=== PATIENT | male | born 1945 | race Hispanic/Latino ===

== ENCOUNTER 2018-08-05 07:58 | Inpatient (IN) | payer OTHER, MEDICARE ==
[2018-08-05] VITALS (15 sets, daily range): BP systolic 71–140; BP diastolic 46–72
[~2018-08-05] VITALS: Ht 172.7 cm; Wt 86.6 kg
[~2018-08-05 07:58] MED LIST: ACCUPRIL20 MG; ACCUPRIL5 MG PO; ALLOPURINOL100 MG PO; COLCRYS0.6 MG PO; EFFIENT10 MG PO; HYDROCHLOROTH12.5 MG PO; LANSOPRAZOLE15 MG; METOPROLOL TART50 MG PO; ONGLYZA5 MG PO; PLAVIX75 MG PO; PREVACID30 MG PO; QUINAPRIL HCL5 MG
[2018-08-05 09:01] LABS: BASOPHILS # (AUTO) 0.1 (0.0-0.1); BASOPHILS % 1.3 % (0.0-1.0); EOSINOPHILS # (AUTO) 0.2 (0.0-0.4); EOSINOPHILS % 2.1 % (0.0-6.0); HEMATOCRIT 49.8 % (38.2-49.6); HEMOGLOBIN 16.3 g/dL (14.0-18.0); LYMPHOCYTES # (AUTO) 2.2 (1.0-3.2); LYMPHOCYTES % 19.7 % (18.0-39.1); MEAN CORPUSCULAR HEMOGLOBIN 29.6 pg (28-32); MEAN CORPUSCULAR HGB CONC 32.7 g/dL (31-35); MEAN CORPUSCULAR VOLUME 90.5 fL (81-99); MONOCYTES # (AUTO) 0.8 (0.2-0.8); MONOCYTES % 7.6 % (4.4-11.3); NEUTROPHILS # (AUTO) 7.6 (2.1-6.9); NEUTROPHILS % 68.8 % (38.7-80.0); PLATELET COUNT 215 x10e3/uL (140-360); RED CELL DISTRIBUTION WIDTH 13.8 % (11.7-14.4)
[2018-08-05] MEDS ORDERED: ASPIR 8181 MG (09:04)
[2018-08-05] MEDS ORDERED: Entresto PO (09:04)
[2018-08-05] MEDS ORDERED: ATORVASTATIN CA40 MG PO (09:04)
[2018-08-05] MEDS ORDERED: HEPARIN SOD (PORCINE) 1000 UNIT/ML 30ML ONE (09:19)
[2018-08-05] MEDS ORDERED: HEPARIN SOD/SOD CHLORIDE 2,000 ML ONE (09:20)
[2018-08-05] MEDS ORDERED: SODIUM CHLORIDE 0.9% 1000ML 1,000 ML ONE ×2 (09:20→11:01)
[2018-08-05] MEDS ORDERED: NITROGLYCERIN/D5W 200 MCG/ML 250 ML ONE (09:20)
[2018-08-05] MEDS ORDERED: LIDOCAINE HCL 2% LOCAL 20 ML VIAL ONE ×2 (09:20→13:56)
[2018-08-05] MEDS ORDERED: IOPAMIDOL 370 MG/ML 200 ML INFUS..BTL INJ ONE (09:20)
[2018-08-05] MEDS ORDERED: MIDAZOLAM HCL 2 MG/2 ML VIAL ONE ×2 (09:20→13:46)
[2018-08-05] MEDS ORDERED: FENTANYL CITRATE/PF 100MCG/2 ML INJ ONE (09:20)
[2018-08-05] MEDS ORDERED: ALPRAZOLAM 0.5 MG TAB ONE (09:21)
[2018-08-05] MEDS ORDERED: DIPHENHYDRAMINE HCL 25 MG CAP ONE (09:21)
[2018-08-05 10:10] LABS: ALBUMIN 3.9 g/dL (3.5-5.0); ALBUMIN/GLOBULIN RATIO 1.2 (0.8-2.0); ANION GAP 17.3 mmol/L (8-16); CREATININE, SERUM 2.83 mg/dL (0.72-1.25); POTASSIUM 5.3 mmol/L (3.5-5.1)
[2018-08-05] MEDS ORDERED: EPTIFIBATIDE 10 ML ONE (13:50)
[2018-08-05] MEDS ORDERED: ATROPINE SULFATE 0.1 MG/ML 10ML SYR ONE (14:07)
[2018-08-05] MEDS ORDERED: MORPHINE SULFATE INJ 4 MG/ML INJ 1ML IV PRN ×2 (16:30→17:00)
[2018-08-05] MEDS ORDERED: MORPHINE SULFATE 2 MG/ML SYR 1ML IV PRN (16:45)
--- NOTE | 2018-08-05 18:46 | NUR ---
BILATERAL SHEETHS REMOVED. ACT OF 156. NO HEMATOMA NOTED ON EITHER SIDE. TOLERATES WELL.
--- NOTE | 2018-08-05 19:20 | NUR ---
Informed by patient that he thinks he is bleeding. 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 Pressure held and dressing changed. No hematoma noted at bilateral insertion sites. Dr. Mclean informed of bleeding, drop in Hgb from 16.3 to 14.2, decrease in BP, increase in dopamine gtt, and 3 beat run of vtach. Orders received for IVF bolus and labs in AM. weather forecasterEkaterina, aware of situation, orders, and patient condition.
[2018-08-05] MEDS ORDERED: ONDANSETRON HCL INJ 2MG/ML 2ML 2 MG/ML VIAL IV PRN (19:45)
[2018-08-05 20:12] LABS: BASOPHILS # (AUTO) 0.2 (0.0-0.1); BASOPHILS % 0.9 % (0.0-1.0); EOSINOPHILS # (AUTO) 0.2 (0.0-0.4); EOSINOPHILS % 0.9 % (0.0-6.0); HEMATOCRIT 42.9 % (38.2-49.6); HEMOGLOBIN 14.2 g/dL (14.0-18.0); LYMPHOCYTES # (AUTO) 2.4 (1.0-3.2); LYMPHOCYTES % 11.7 % (18.0-39.1); MEAN CORPUSCULAR HEMOGLOBIN 29.6 pg (28-32); MEAN CORPUSCULAR HGB CONC 33.1 g/dL (31-35); MEAN CORPUSCULAR VOLUME 89.6 fL (81-99); MONOCYTES # (AUTO) 1.1 (0.2-0.8); MONOCYTES % 5.3 % (4.4-11.3); NEUTROPHILS # (AUTO) 16.3 (2.1-6.9); NEUTROPHILS % 80.8 % (38.7-80.0); PLATELET COUNT 220 x10e3/uL (140-360); RED BLOOD COUNT 4.79 x10e6/uL (4.3-5.7)
[2018-08-05] MEDS ORDERED: SODIUM CHLORIDE 0.9% 1000ML 1,000 ML IV ONE (20:45)
[2018-08-05] MEDS: ALLOPURINOL 100 MG TAB PO SCH (20:51)
[2018-08-05] MEDS: ATORVASTATIN 40 MG TAB PO SCH (20:51)
[2018-08-05] MEDS ORDERED: NON-FORMULARY MEDICATION (Atorvastatin Calcium 40 MG) PO SCH (21:00)
[2018-08-06] VITALS (23 sets, daily range): BP systolic 71–121; BP diastolic 43–78
--- NOTE | 2018-08-06 02:38 | Operative Report ---
DATE OF PROCEDURE: 08/05/2018 SURGEON: Kraig Mclean MD INDICATION: 1. Coronary artery disease, abnormal stress test. 2. Acute congestive heart failure. PROCEDURES PERFORMED: 1. Left heart catheterization, selective coronary angiography. 2. Selective cannulation of one arterial and two venous bypass conduit. 3. PTCA and stent placement of the right coronary artery. 4. Manual removal of the sheath. COMPLICATIONS: None. RECOMMENDATIONS: Dual antiplatelet therapy, reassessment of coronary artery disease, reassessment of ejection fraction in 90 days for consideration of AICD placement. DESCRIPTION OF PROCEDURE: Access was obtained in the right femoral artery owing to sheath kink access was then obtained in the left femoral artery. Diagnostic coronary angiogram revealed heavily diseased calcified left main. Left anterior descending and circumflex arteries were occluded. Right coronary artery was diffusely diseased, 90% stenosis in the midportion, 50% proximal and distal stenosis. Left internal mammary artery bypass was widely patent to left anterior descending artery. Saphenous vein bypass stent was widely patent to the obtuse marginal and left posterior descending artery saphenous vein bypass to diagonal artery was widely patent. LV end-diastolic pressure of 10. No gradient across the aortic valve on pullback. The decision was made to enter via the right coronary artery. The patient received intravenous heparin and Integrilin for anticoagulation. The right coronary artery was cannulated using a JR4 6-[place] guiding catheter. A short wire was advanced across the lesion. Primary predilatation with 2 mm balloon following by a single 2.5 x 16 mm Synergy stent was deployed at 14 atmospheres. Excellent end result, less than 10% residual stenosis, RASHI-3 flow. No complications. Guide and wire were removed. Sheath was secured in place, removal under manual pressure. The patient was transferred to the floor in stable condition. Kraig Mclean MD KSB/MODL /[id number]
[2018-08-06 04:56] LABS: BASOPHILS # (AUTO) 0.1 (0.0-0.1); BASOPHILS % 0.5 % (0.0-1.0); EOSINOPHILS # (AUTO) 0.1 (0.0-0.4); EOSINOPHILS % 0.3 % (0.0-6.0); HEMATOCRIT 40.3 % (38.2-49.6); HEMOGLOBIN 13.1 g/dL (14.0-18.0); LYMPHOCYTES # (AUTO) 1.7 (1.0-3.2); LYMPHOCYTES % 9.9 % (18.0-39.1); MEAN CORPUSCULAR HEMOGLOBIN 29.6 pg (28-32); MEAN CORPUSCULAR HGB CONC 32.5 g/dL (31-35); MONOCYTES # (AUTO) 1.1 (0.2-0.8); MONOCYTES % 6.1 % (4.4-11.3); NEUTROPHILS # (AUTO) 14.5 (2.1-6.9); NEUTROPHILS % 82.7 % (38.7-80.0); PLATELET COUNT 220 x10e3/uL (140-360); RED BLOOD COUNT 4.43 x10e6/uL (4.3-5.7); RED CELL DISTRIBUTION WIDTH 13.8 % (11.7-14.4)
[2018-08-06 05:19] LABS: CREATININE, SERUM 2.57 mg/dL (0.72-1.25)
[2018-08-06] MEDS: METOPROLOL TARTRATE 50 MG TAB PO SCH (07:45)
[2018-08-06] MEDS: COLCHICINE 0.6 MG TAB PO SCH ×2 (08:07→08:15)
[2018-08-06] MEDS: ASPIRIN 81 MG CHEW TAB PO SCH (08:07)
[2018-08-06] MEDS: PANTOPRAZOLE SOD 40 MG TABEC PO SCH (08:07)
[2018-08-06] MEDS: PRASUGREL 10 MG TAB PO SCH (08:07)
[2018-08-06] MEDS: SAXAGLIPTIN HCL 5 MG PO SCH (08:15)
[2018-08-06] MEDS ORDERED: SODIUM CHLORIDE 0.9% 1000ML 1,000 ML ONE (09:54)
--- NOTE | 2018-08-06 13:06 | Progress Note ---
DATE: 08/06/2018 Cardiology Progress Note SUBJECTIVE: The patient denies chest pain or shortness of breath. He had bleeding from his cardiac catheterization site overnight and became hypotensive requiring dopamine, currently at 10 mcg/kg/minute. OBJECTIVE: VITAL SIGNS: 97.5 degrees, pulse 69, respiratory rate 12, blood pressure 102/78, and oxygen saturation 98% on room air. GENERAL: Awake, alert, in no acute distress. LUNGS: Clear to auscultation bilaterally. No wheezes or crackles. CARDIOVASCULAR: Normal rate. Regular rhythm. No murmur. Normal S1, S2. ABDOMEN: Soft, nontender. EXTREMITIES: No edema. Bilateral groins with pressure dressing in place. No hematoma or bruit. CARDIAC MEDICATIONS: 1. Dopamine drip. 2. Aspirin 81 mg p.o. daily. 3. Prasugrel 10 mg p.o. daily. 4. Atorvastatin 40 mg p.o. at bedtime. 5. Metoprolol tartrate 50 mg p.o. daily. LABORATORY DATA: WBC 17.53, hemoglobin 13.1, hematocrit 40.3, platelets 220. Sodium 136, potassium 5, chloride 103, CO2 of 23, BUN 53, creatinine 2.57. TELEMETRY: Normal sinus rhythm with PVCs. IMPRESSION: 1. Coronary artery disease, status post CABG with PCI of the [place] RCA. 2. Acute anemia secondary to bleeding from cardiac catheterization site. 3. Acute systolic heart failure, LVEF 30%-35%. 4. Diabetes mellitus. RECOMMENDATIONS: Continue dopamine support, wean as tolerated. Additional fluid boluses given patient's continued hypotension. Monitor H and H closely. No indication for transfusion at this time. Continue current cardiac medications. The patient may be discharged home once he is no longer hypotensive. Diamond Murillo MD ABS/MODL /[id number]
[2018-08-06] MEDS ORDERED: ONDANSETRON HCL 4 MG ORAL DISINTEGRATING TAB PO PRN (13:45)
[2018-08-06] MEDS: ALLOPURINOL 100 MG TAB PO SCH (20:32)
[2018-08-06] MEDS: ATORVASTATIN 40 MG TAB PO SCH (20:32)
--- NOTE | 2018-08-06 21:30 | NUR ---
Report given to Michael MADSEN in [facility]. Transferred patient with all belongings via WC at 2125, escorted by RN. Family at bedside. No acute distress noted.
--- NOTE | 2018-08-06 21:30 | NUR ---
Received patient from ICU 194 via wheelchair. No resp distress. Denies pain at this time. Dressing c,d,i. No complaints or concerns. Call light within reach and instructed to call for assistance.
[2018-08-07] VITALS: BP 94/52
[2018-08-07 04:13] VITALS: BP 114/59
[2018-08-07 05:29] LABS: BASOPHILS # (AUTO) 0.1 (0.0-0.1); BASOPHILS % 0.7 % (0.0-1.0); EOSINOPHILS # (AUTO) 0.3 (0.0-0.4); EOSINOPHILS % 3.1 % (0.0-6.0); HEMATOCRIT 33.3 % (38.2-49.6); HEMOGLOBIN 10.4 g/dL (14.0-18.0); LYMPHOCYTES # (AUTO) 2.3 (1.0-3.2); LYMPHOCYTES % 23.1 % (18.0-39.1); MEAN CORPUSCULAR HEMOGLOBIN 29.2 pg (28-32); MEAN CORPUSCULAR HGB CONC 31.2 g/dL (31-35); MEAN CORPUSCULAR VOLUME 93.5 fL (81-99); MONOCYTES # (AUTO) 0.9 (0.2-0.8); NEUTROPHILS # (AUTO) 6.3 (2.1-6.9); NEUTROPHILS % 63.7 % (38.7-80.0); PLATELET COUNT 138 x10e3/uL (140-360); RED BLOOD COUNT 3.56 x10e6/uL (4.3-5.7); RED CELL DISTRIBUTION WIDTH 13.9 % (11.7-14.4)
[2018-08-07 06:55] LABS: ANION GAP 10.8 mmol/L (8-16); CALCIUM 8.7 mg/dL (8.4-10.2); CREATININE, SERUM 1.92 mg/dL (0.72-1.25); POTASSIUM 4.8 mmol/L (3.5-5.1)
[2018-08-07] MEDS: COLCHICINE 0.6 MG TAB PO SCH (08:45)
[2018-08-07] MEDS: PRASUGREL 10 MG TAB PO SCH (08:45)
[2018-08-07] MEDS: ASPIRIN 81 MG CHEW TAB PO SCH (08:45)
[2018-08-07] MEDS: PANTOPRAZOLE SOD 40 MG TABEC PO SCH (08:46)
[2018-08-07] MEDS: SAXAGLIPTIN HCL 5 MG PO SCH (08:46)
[2018-08-07] MEDS: METOPROLOL TARTRATE 50 MG TAB PO SCH (08:46)
[2018-08-07 09:33] VITALS: BP 110/55
--- NOTE | 2018-08-07 12:28 | NUR ---
Pt in bed resting at this time. at bedside. No c/o pain. Dressing to Lt and Rt groin, gauze with tegaderm. Bruising noted around sites. Pt able to ambulate. Saline lock to IV. Resp WNL. A&O x3. BP between 110/55.
--- NOTE | 2018-08-07 12:43 | NUR ---
notified regarding change in HGb of 10.4 from 13.1 yesterday. No new orders received.
[2018-08-07 13:06] VITALS: BP 110/55
[2018-08-07 13:07] VITALS: BP 110/55
[2018-08-07 13:55] VITALS: BP 111/59
--- NOTE | 2018-08-08 00:03 | Discharge Summary ---
ADMISSION DIAGNOSES: 1. Coronary artery disease. 2. Hypotension. DISCHARGE DIAGNOSES: 1. Coronary artery disease, status post RCA PCI. 2. Acute anemia secondary to acute blood loss. 3. Hypotension secondary to above. 4. Comorbid conditions. 5. Chronic systolic heart failure. 6. Diabetes mellitus. HOSPITAL SUMMARY: The patient presented for scheduled cardiac catheterization for evaluation of his coronary artery disease. He underwent PCI of his [place] RCA without complications. He was observed in the hospital overnight, where he had bleeding from his procedure site after he developed nausea and vomiting. After developing nausea and vomiting, he became hypotensive and required initiation of dopamine. The patient was fluid resuscitated and dopamine was weaned off. On discharge, blood pressure stabilized and the patient was discharged home in stable condition. MEDICATIONS: Please see discharge medication reconciliation. Vitals reviewed. Telemetry, normal sinus rhythm. Diamond Murillo MD ABS/MODL /[id number]
== END 2018-08-07 14:44 | disposition home or self-care (01) | DRG 246 ==
LOC: CATH LAB 07:58 → PACU V 13:58 → ICU 16:08 → MED/SURG 08-06 21:29
PROVIDERS: ADMIT Internal Medicine Interventional Cardiology; ATTEND Internal Medicine Interventional Cardiology
PROC: 027035Z Dilation of Coronary Artery, One Artery with Two Drug-eluting Intraluminal Devices, Percutaneous Approach (ICD-10-PCS; principal; 2018-08-05)
PROC: 4A023N7 Measurement of Cardiac Sampling and Pressure, Left Heart, Percutaneous Approach (ICD-10-PCS; 2018-08-05)
PROC: B2121ZZ Fluoroscopy of Single Coronary Artery Bypass Graft using Low Osmolar Contrast (ICD-10-PCS; 2018-08-05)
PROC: B2181ZZ Fluoroscopy of Left Internal Mammary Bypass Graft using Low Osmolar Contrast (ICD-10-PCS; 2018-08-05)
PROC: B2111ZZ Fluoroscopy of Multiple Coronary Arteries using Low Osmolar Contrast (ICD-10-PCS; 2018-08-05)
PROC: B2151ZZ Fluoroscopy of Left Heart using Low Osmolar Contrast (ICD-10-PCS; 2018-08-05)
DX: I25.810 Atherosclerosis of coronary artery bypass graft(s) without angina pectoris (principal); I50.23 Acute on chronic systolic (congestive) heart failure; I97.610 Postprocedural hemorrhage of a circulatory system organ or structure following a cardiac catheterization; D62 Acute posthemorrhagic anemia; I11.0 Hypertensive heart disease with heart failure; I25.10 Atherosclerotic heart disease of native coronary artery without angina pectoris; I25.2 Old myocardial infarction; E11.9 Type 2 diabetes mellitus without complications; Z95.1 Presence of aortocoronary bypass graft
CPT/HCPCS: 36415; 80048; 80053; 85025; 92928; 93455; C1725; C1769; C1874; J1327; J1644; J2001; J2250; J2270; J2405; J7030; Q9967